=== PATIENT | female | born 1950 | race Caucasian/White ===

== ENCOUNTER 2024-10-19 16:14 | Inpatient (IN) | payer OTHER, SELFPAY ==
[2024-10-19] VITALS (21 sets, daily range): BP systolic 148–233; BP diastolic 49–145; BMI 25.0
[2024-10-19 14:50] LABS: % Basophils 0.7 % (0-2); % Eosinophils 2.3 % (0-6); % Immature Granulocytes 0.2 % (0-0.5); % Lymphocytes 16.5 % (20.5-51.1); % Neutrophils 72.3 % (42.2-75.2); Absolute Basophils 0.1 10^3/uL (0-0.2); Absolute Eosinophils 0.2 10^3/uL (0-0.7); Absolute Lymphocytes 1.6 10^3/uL (1.2-3.4); Absolute Monocytes 0.8 10^3/uL (0.1-0.6); Hematocrit 39.1 % (37.0-47.0); Hemoglobin 12.9 g/dL (12.0-16.0); Mean Corpuscular Hgb 29.1 pg (27.0-31.0); Mean Corpuscular Volume 88.3 fL (81.0-99.0); Mean Platelet Volume 11.8 fL (7.4-10.4); Nucleated Red Blood Cells % 0 %; Platelet Count 208 10^3/uL (130-400); Red Blood Cell Count 4.43 10^6/uL (4.20-5.40); Red Cell Dist. Width 13.9 % (11.5-14.5); White Blood Cell Count 9.7 10^3/uL (4.8-10.8)
--- NOTE | 2024-10-19 14:53 | ED.GENMED ---
History of Present Illness
General
Chief Complaint: Swelling
Time Seen by Provider: 10/19/24 14:20
History of Present Illness
History of Present Illness:
74-year-old female with history of hypertension and hyperlipidemia presents to the emergency department for evaluation of bilateral leg edema for 'quite some time'. She is unable to give me a specific timeframe. She states 'I would not be here if
not for my sister telling me I walked too slow'. She does report some dyspnea on exertion particularly stairs. Denies any chest pain, denies any remote cardiac symptoms prior to the onset of the symptoms. No fevers or chills. She does report
significant weight gain recently.
Past History
Past History
ED Past Medical History: None
Social History
Tobacco: Smoker
Review of Systems
Review of Systems
Allergies reviewed?: Yes
All Other Systems: ROS reviewed and negative except as documented in HPI and ROS
Phy Exam
Physical Exam
Physical Exam:
GEN: Well appearing, NAD, WDWN
Eyes: PERRLA, EOMs intact, no scleral icterus
HENT: NCAT, oral mucosa moist, no JVD
Lungs: CTAB, no wheezes, rales, rhonchi, normal chest wall excursion
Cardiac: Bradycardic, no murmur
Abdomen: S, NT, ND, NABS, no masses or hepatosplenomegaly
Neuro: AO x 3
MSK: No gross deformity or ecchymosis. 3+ edema bilateral lower extremities, no calf rigidity or tenderness
Skin: No rashes, petechiae. Normal color, no pallor or jaundice.
Psych: Calm, cooperative, proper hygiene
Scores
Heart Failure Risk
Heart Failure Risk Score: Yes
History of Stroke or TIA: No
History of intubation for respiratory distress: No
Heart rate on ED arrival >/= 110: No
SaO2 <90% on arrival on room air: No
HR >/=110 during 3min walk test (or too ill to perform test): Yes
ECG has acute ischemic changes: No
Urea >/=12mmol/L (BUN 33.6mg/dL): No
Serum CO2>/=35mmol/L: No
Troponin I or T elevated to RI Level (0.4mg/dL): Yes
NT-proBNP >/=5,000ng/L (5,000pg/ml): Yes
HF Risk Score: 5
Admission Status: VERY HIGH RISK 39.8% Consider admission to hospital
Course
Orders/Labs/Results
Orders:
Orders
10/19/24 14:18
EKG [Electrocardiogram (*1)] Urgent
Reason for Study: Bradycardia / Tachycardia
EKG- Treatment ONCE
10/19/24 14:28
Venous Doppler Lwr Ext Bilat [US Periph Venous LOWER Ext Iban] Urgent
Comment:
Reason For Exam: BLE edema
10/19/24 14:35
Complete Blood Count/With Diff Urgent
Comprehensive Metabolic Panel Urgent
Magnesium Urgent
NT-proBNP Urgent
Troponin I Urgent
10/19/24 14:51
Add On- LAB Urgent
Tests Added?: troponin, magnesium
CR Chest Portable - 1 View Urgent
Comment:
Reason For Exam: HOLT
Reason Study Needs to be Portable: Other
10/19/24 Dinner
Cholesterol Lowering
At Your Request: Full Participation
Cholesterol Lowering: Sodium, 2 Gram
10/19/24 15:31
Furosemide [Lasix] 20 mg IV ONCE ONE
10/19/24 15:35
Consult Cardiology [CARDIOLOGY CONSULT] Routine
Consulting Provider: Kojo Robin
Was physician already notified: Yes
Reason for consult: heart block
10/19/24 15:36
Activity As Directed
Activity Level: Bedrest
10/19/24 15:45
Admit/Transfer Patient As Directed
Co-Sign Provider:
Level of Care: Inpatient admission
Assign to:: IVU
Physician / Group: jammie
Diagnosis: heart block/chf
Reason for Hospitalization: heart block/chf
Expected length of stay greater than two midnights?: Yes
ELOS- Estimated Length of Stay in days: 2
I certify the patient meets the requirements for IP care: Yes
PRN Pain Medication Management As Directed
May give lesser potent ordered pain med per pt: Yes
preference::
Protocol:: Medication orders for pain may be administered in a
manner that supports deferring to patient preference
when the pt is:
- Requesting an ordered lesser potent pain medication.
Least to most potent pain medications are defined
as: acetaminophen < NSAID < tramadol < opioids
(morphine, oxycodone, hydromorphone).
- Requesting a lesser dose of the same medication IF
ORDERED.
- Requesting a less intrusive route of administration
if both routes are prescribed by the provider (PO <
IV).
10/19/24 15:50
Code Status As Directed
Resuscitation Status: Full Code
10/19/24 15:53
Furosemide [Lasix] 20 mg IV NOW STA
10/19/24 15:54
HydrALAZINE [Apresoline] 5 mg IV Q6HPRN PRN
10/19/24 17:38
Echo 2D MMode Color/Doppler Routine
Reason for Study: chf
Activity As Directed
Activity Level: As Tolerated
Intake/ Output As Directed
Frequency: q12h
Vital Signs As Directed
Frequency: Other
Additional Instructions:: Q12 or per unit guidelines if more frequent.
Weight As Directed
Frequency: Daily
Type of Scale: Standing Scale
Comment: Daily morning weight. If unable to stand, use balanced bed scale.
Weight As Directed
Frequency: Once
Type of Scale: Standing Scale
Comment: Upon Admission. If unable to stand, use balanced bed scale.
Pulse Ox/cont/shift [RESP] Routine
Quantity: 1
Special Instructions: Daily pulse oximetry at rest. If greater than 92% at rest also obtain pulse oximetry
while ambulating as tolerated.
DX Deep Vein Thrombosis Video Routine
10/19/24 20:00
Heparin 5,000 units SC Q12
10/20/24 06:00
Complete Blood Count/With Diff IN AM
Comprehensive Metabolic Panel IN AM
10/20/24 08:00
Furosemide [Lasix] 40 mg IV DAILY
Lisinopril [Zestril] 10 mg PO DAILY
Rosuvastatin Calcium [Crestor] 10 mg PO DAILY
Abnormal Lab Results
10/19/24
14:35
MPV 11.8 H fL
(7.4-10.4)
Absolute Neuts (auto) 7.0 H 10^3/uL
(1.4-6.5)
Absolute Monos (auto) 0.8 H 10^3/uL
(0.1-0.6)
Lymphocytes % 16.5 L %
(20.5-51.1)
Chloride 110 H mmol/L
(98-107)
BUN 34 H mg/dl
(7-17)
AST 90 H U/L
(14-36)
ALT 106 H U/L
(0-35)
Troponin I 0.052 H* ng/ml
10/19/24 14:35
10/19/24 14:35
Vital Signs
Initial and Last Documented VS:
Initial Vital Signs
Temp Pulse Resp BP Pulse Ox
97.2 F 41 20 217/79 96
10/19/24 13:32 10/19/24 13:32 10/19/24 13:32 10/19/24 13:32 10/19/24 13:32
Last Documented Vital Signs
Temp Pulse Resp BP Pulse Ox
97.2 F 80 22 164/132 96
10/19/24 13:32 10/19/24 17:45 10/19/24 17:15 10/19/24 17:44 10/19/24 17:15
MDM/Problems Addressed
MDM/Problems Addressed:
74-year-old female presents due to leg swelling, found to be in a complete heart block of uncertain duration. She is presenting with signs and symptoms consistent with acute congestive heart failure. Cardiology consulted, will be admitted to the
IVU under the hospitalist service for further management. Placed on cardiac pads if the need for urgent pacing arises however the patient remained quite stable in the emergency department
Comment
Comment:
EKG independently interpreted by me shows 3rd degree AV block with a ventricular rate of approximately 35
*Critical Care Note
Total Time (30-74mins, 75-104mins- exclusive of procedures): Not Applicable
ED Attending Note
-
Portions of this chart may have been created with voice recognition software.� Occasional wrong word or��sound alike� substitutions may have occurred due to the inherent limitations of voice recognition software.
Discharge Plan
Departure
Patient Disposition: Admit
Date of Disposition: 10/19/24
Time of Disposition: 15:24
Admit to: IVU
Presentation/result/management discussed w/ accepting MD/DO: Hospitalist
Discharge Problem:
Complete heart block, Congestive heart failure
Interventions
Interventions:
*Risk Screen - Suicide Last Done: 10/19/24 17:53
*General Assessment Last Done: 10/19/24 13:30
*Neglect/Abuse Screening Last Done: 10/19/24 13:30
ED- Fall Risk Assessment Last Done: 10/19/24 13:38
*ED COVID-19 Vaccine History Last Done: 10/19/24 17:53
*Nursing Disposition Last Done: 10/19/24 17:40
ED- Cardiac Assessment Last Done: 10/19/24 15:00
ED- Pulmonary Assessment Last Done: 10/19/24 15:00
ED-Skin Assessment Last Done: 10/19/24 15:00
Discharge Date and Time
Discharge Date/Time: 10/19/24 17:30
[2024-10-19 15:02] LABS: ALT (SGPT) 106 U/L (0-35); AST (SGOT) 90 U/L (14-36); Albumin 3.7 g/dl (3.5-5.0); Alkaline Phosphatase 101 U/L (38-126); Blood Urea Nitrogen 34 mg/dl (7-17); Calcium 9.1 mg/dl (8.4-10.2); Carbon Dioxide 26 mmol/L (22-30); Chloride 110 mmol/L (98-107); Glucose 97 mg/dl (70-99); Sodium 142 mmol/L (135-145); Total Bilirubin 0.9 mg/dl (0.2-1.3); Total Protein 6.3 g/dl (6.3-8.2); eGFR > 60.00
[2024-10-19 15:10] LABS: NT-proBNP 7970 pg/ml
[2024-10-19 15:16] LABS: Magnesium 2.3 mg/dl (1.6-2.3)
--- NOTE | 2024-10-19 15:38 | CON.CAR ---
Consultation
Consultation Request
Date/Time Consultation Requested: 10/19/24
Date/Time Consultation Performed: 10/19/24
Requesting Provider: Grant
Performing Provider: Lobito
Reason for Consultation: Complete heart block
Medical History
-
Chief Complaint: LE edema
History of Present Illness:
74-year-old woman past medical history of hypertension, hyperlipidemia and intellectual delay who presents for evaluation of lower extremity edema and was found to be in complete heart block for which cardiology is consulted.
Patient tells me that for what sounds like months she has been experiencing worsening lower extremity edema. Has also had episodes of lightheaded and dizziness during this time as well as presyncope. Denies elan syncope/LOC. But does tell me she
has 'flopped down' on the floor several times over this time period.
Admission ECG shows sinus rate around 75 bpm, complete heart block, junctional rhythm around 40 bpm. By my review of telemetry has had heart rate around 40 bpm throughout her time here in the emergency department.
Past Medical History
Past Medical History: HTN and Hypercholesterolemia
Past Surgical History: Bowel Resection
Social History
Tobacco: Non-Smoker
Living: With Family
Family History
Family History: Other (Mother with heart disease but patient is unable to give further details)
Allergies / Home Medications
Allergy/AdvReac Type Severity Reaction Status Date / Time
No Known Allergies Allergy Verified 10/19/24 13:30
�Medication �Instructions �Recorded �Confirmed �Type
lisinopril 10 mg tablet 10 mg PO DAILY 10/19/24 10/19/24 History
rosuvastatin 10 mg tablet (Crestor) 10 mg PO DAILY 10/19/24 10/19/24 History
Review of Systems
-
History Source: Patient
All other systems: Negative unless noted
Physical Exam
Vital Signs
Temp Pulse Resp BP Pulse Ox
97.2 F 81 22 230/66 96
10/19/24 13:32 10/19/24 14:45 10/19/24 14:45 10/19/24 14:36 10/19/24 15:00
Lab Results
10/19/24 14:35
10/19/24 14:35
Ksd-B-[id number] Pept 7970 pg/ml 10/19/24 14:35
Physical Exam
General: Comfortable
HEENT: Normocephalic
Respiratory: Clear
Cardiac: S1/S2 and Regular Rhythm (Bradycardic)
Breast: Deferred by me
GI: Soft
Musculoskeletal: Edema (2+ pitting bilateral lower extremity)
Skin: Warm and Dry
Neuro: Awake and Alert
Psych: Calm
Impression / Plan
-
Front Desk Specialist: None prior to admission, initially seen by Lobito
PCP: Kendall Kang
Assessment:
Complete heart block
Acute heart failure, unknown type
Hypertension
Hyperlipidemia
Intellectual delay
Plan:
-Presents for evaluation of progressive lower extremity edema over the course of several months and found to be in complete heart block
-ECG and telemetry showing complete heart block with junctional escape around 40 bpm
-Warm and well-perfused on exam with hypertensive blood pressure
-If she becomes symptomatic or hemodynamically unstable would start dobutamine plus or minus placing transvenous pacer
-For now recommend IVU admission and monitor on telemetry
-Bedrest
-Keep transcutaneous pacemaker pads in place
-Tentative plan for permanent pacemaker on 10/21
-Reports progressive lower extremity edema, chest x-ray suggestive of mild pulmonary edema (my interpretation), and proBNP is elevated above 7000 all in keeping with acute heart failure
-Agree with IV diuretics as ordered, plan for twice daily going forward
-Follow renal function/electrolytes
-Check echo on Monday
Discussed with nursing
Data Reviewed
-
EKG: Tracing Personally Visualized and interpreted
Radiology: Image Personally Visualized and interpreted
Ultrasound: Report Reviewed by me
Labs: Labs Reviewed by me
Old Records: Reviewed
[2024-10-19 15:52] LABS: Troponin I 0.052 ng/ml
--- NOTE | 2024-10-19 15:55 | HPS.HSE ---
Family Physician
-
Family Physician: Kendall Kang
Chief Complaint
-
syncope
History of Present Illness
74-year-old female past medical history of hypertension, hyperlipidemia presenting with increased lower extremity edema. She was brought in by her daughter for swelling. She had 2 syncopal episodes over the past 2 days. She has occasional
shortness of breath with exertion. Denies chest pain. Denies weight gain. Denies fevers or chills.
Denies headache, blurry vision, focal weakness or numbness or tingling. She has a history of high blood pressure but does not check it regularly and does not know how high her blood pressure has been.
She denies smoking or alcohol use.
No family history of heart disease.
Medical History
Past Medical History
Past Medical History: Reports Other (hypertension, hyperlipidemia)
Past Surgical History: Reports None
Social History
Tobacco: Non-smoker
Alcohol: None
Drug: None
Family History
Family History: Not pertinent
Allergies / Home Medications
Allergies reflects when Allergies were last updated in [employer].
Home Medications with original date entered in [employer]
Allergy/Medication List:
Allergies
Allergy/AdvReac Type Severity Reaction Status Date / Time
No Known Allergies Allergy Verified 10/19/24 13:30
Home Medications
lisinopril 10 mg tablet 10 mg PO DAILY 10/19/24
rosuvastatin 10 mg tablet (Crestor) 10 mg PO DAILY 10/19/24
Review of Systems
-
History Source: Patient
A 12 point ROS was completed and negative except as noted: Yes
Constitutional: Reports No Symptoms
EENT: Reports No Symptoms
Respiratory: Reports See HPI
Cardiac: Reports See HPI
Abdomen/GI: Reports No Symptoms
: Reports No Symptoms
Musculoskeletal: Reports No Symptoms
Skin: Reports No Symptoms
Neurological: Reports No Symptoms
Endocrine: Reports No Symptoms
Hematologic/Lymphatic: Reports No Symptoms
Psych: Reports No Symptoms
Physical Exam
Vital Signs
Vital Signs
Temp Pulse Resp BP Pulse Ox
97.2 F 81 22 230/66 96
10/19/24 13:32 10/19/24 14:45 10/19/24 14:45 10/19/24 14:36 10/19/24 15:00
Physical Exam
General: Well Developed, Well Nourished and No Apparent Distress
HEENT: NormoCephalic, Moist mucous membranes and Atraumatic
Respiratory: Clear
Cardiac: S1/S2, Regular Rhythm and Peripheral Edema; No Murmur or Rub
GI: Soft, Non Tender, Non Distended and Normal Bowel Sounds; No Organomegaly
Rectal: Deferred by Provider
Musculoskeletal: No Clubbing, No Cyanosis and No Edema
Skin: No Rash
Neuro: Nonfocal/grossly intact
Laboratory Results
-
10/19/24 14:35
10/19/24 14:35
Laboratory Results
Total Bilirubin 0.9 mg/dl (0.2-1.3) 10/19/24 14:35
AST 90 U/L (14-36) H 10/19/24 14:35
ALT 106 U/L (0-35) H 10/19/24 14:35
Alkaline Phosphatase 101 U/L (38-126) 10/19/24 14:35
Troponin I 0.052 ng/ml H* 10/19/24 14:35
Data Reviewed
-
Lab Data: Labs Reviewed by me
Old Records: Reviewed
Impression/Plan
-
IMPRESSION:
PLAN:
# Syncope secondary to third-degree heart block/bradycardia
-Asymptomatic currently and hemodynamically stable
-Cardiology consulted
-Likely needs pacemaker
-N.p.o. past midnight
# Hypertensive emergency
-No symptoms apart from being in heart failure
-Blood pressure of 230 systolic
-Hydralazine as needed for systolic blood pressure greater than 180
# Acute CHF exacerbation
-Cardiac BNP of 8000
-Chest x-ray pending
-Check I's and O's, daily weights
- 20 IV Lasix given, give 20 more, 40 IV daily
-Check echo
# Transaminitis secondary to CHF exacerbation
-Continue to monitor with diuresis
Essential hypertension
-Continue lisinopril
Hyperlipidemia
-Continue statin
Full code
DVT prophylaxis�heparin
Cardiac diet
[2024-10-19] MEDS: APRESOLINE 5 MG IV ×2 (16:34→20:23)
[2024-10-19] MEDS: LASIX 20 MG IV ×2 (16:36→16:37)
--- NOTE | 2024-10-19 18:17 | PTCARENOTE ---
Received pt from ER - Complete HB and BP 190 - 200/ 120. Pt was saturated in urine - purewick placed. Pt denies CP, SOB or dizziness
[2024-10-19] MEDS: HEPARIN 5000 UNITS SC (19:50)
--- NOTE | 2024-10-19 22:17 | PTCARENOTE ---
Addendum entered by Christine Brock RN 10/20/24 04:54:
Patient BP has stabilized after STAT dose of hydralazine. Most recent BP 154/61
Original Note:
Received patient at change of shift. Patient sitting in bed, A&Ox3. BP 225/60, 3rd degree HB 30-90s, 95% on room air. Informed Eliz Norman NP, of BP even after dose of hydralazine. Increased medication, STAT hydralazine given-- see MAR. Trending
BPS and trops. Pt c/o leg cramps. Heat applied, ice applied, and electrolytes drawn. Discussed plan of care for evening. Patient verbalized understanding and agrees to call care team if needing to get out of bed. Call wahl within reach.
[2024-10-19 22:20] LABS: Blood Urea Nitrogen 31 mg/dl (7-17); Calcium 8.8 mg/dl (8.4-10.2); Carbon Dioxide 27 mmol/L (22-30); Chloride 103 mmol/L (98-107); Estimated Creatinine Clearance 44 ml/min; Glucose 99 mg/dl (70-99); Sodium 135 mmol/L (135-145); eGFR > 60.00
[2024-10-19 22:26] LABS: Troponin I 0.032 ng/ml
[2024-10-20] VITALS (32 sets, daily range): BP systolic 110–254; BP diastolic 47–136; BMI 22.9
[2024-10-20] MEDS: XANAX 0.25 MG PO (02:10)
--- NOTE | 2024-10-20 04:55 | PTCARENOTE ---
Pt c/o leg cramps. Electrolytes ok. Prescribed Xanax to help relax to be able to sleep-- see MAR. Pt has been resting quietly since it was given.
[2024-10-20 05:28] LABS: % Basophils 0.7 % (0-2); % Eosinophils 2.8 % (0-6); % Immature Granulocytes 0.2 % (0-0.5); % Lymphocytes 13.2 % (20.5-51.1); % Monocytes 7.2 % (1.7-9.3); % Neutrophils 75.9 % (42.2-75.2); Absolute Basophils 0.1 10^3/uL (0-0.2); Absolute Eosinophils 0.2 10^3/uL (0-0.7); Absolute Lymphocytes 1.1 10^3/uL (1.2-3.4); Absolute Monocytes 0.6 10^3/uL (0.1-0.6); Absolute Neutrophils 6.3 10^3/uL (1.4-6.5); Hematocrit 34.5 % (37.0-47.0); Hemoglobin 11.5 g/dL (12.0-16.0); Mean Corp Hgb Conc. 33.3 g/dL (33.0-37.0); Mean Corpuscular Volume 87.1 fL (81.0-99.0); Mean Platelet Volume 11.6 fL (7.4-10.4); Nucleated Red Blood Cells % 0 %; Platelet Count 195 10^3/uL (130-400); Red Blood Cell Count 3.96 10^6/uL (4.20-5.40); Red Cell Dist. Width 13.9 % (11.5-14.5); White Blood Cell Count 8.3 10^3/uL (4.8-10.8)
[2024-10-20 05:39] LABS: ALT (SGPT) 92 U/L (0-35); AST (SGOT) 74 U/L (14-36); Albumin 2.8 g/dl (3.5-5.0); Alkaline Phosphatase 98 U/L (38-126); Blood Urea Nitrogen 30 mg/dl (7-17); Calcium 8.3 mg/dl (8.4-10.2); Carbon Dioxide 25 mmol/L (22-30); Chloride 106 mmol/L (98-107); Estimated Creatinine Clearance 44 ml/min; Glucose 92 mg/dl (70-99); Sodium 136 mmol/L (135-145); Total Bilirubin 0.7 mg/dl (0.2-1.3); Total Protein 5.1 g/dl (6.3-8.2); eGFR > 60.00
[2024-10-20] MEDS: HEPARIN 5000 UNITS SC ×2 (08:44→20:12)
[2024-10-20] MEDS: LASIX 40 MG IV ×2 (08:44→17:05)
[2024-10-20] MEDS: CRESTOR 10 MG PO (08:45)
[2024-10-20] MEDS: ZESTRIL 10 MG PO (08:45)
[2024-10-20] MEDS: APRESOLINE 10 MG IV ×2 (09:16→20:12)
--- NOTE | 2024-10-20 11:58 | W.PN.HOSP.TC ---
Today's Communication/Plan
-
see PN
Assessment / Plan
Assessment / Plan
74yo F with PMHX of HTN, HLD came with progresisve b/l LE swelling for few weeks, found complete canales block. Had few episodes of pre-syncope at home. Planned for PPM, meanwhile- diuresis for CHF
A/P:
#Acute CHF unspecified
#COmplete AVB
transutaneous pace maker and Atropin PRN
telemetry
Cardiology for PPM on 10/21/24
Lasix, daily weight, follow Cr and electrolytes
Echo
#HTN emergency on admisison
up-titrate antihypertensives
#Chronic transaminitis
US RUQ - unremarkable
check hepatitis panel
DVT ppx hep
FUll code
I have spent at least 36min reviewing chart, test results, communication with cosnultants and direct patient care
Anticipated Discharge: > 48 hours
Subjective/Interval History
-
Date of Service: October 20, 2024
Objective Data
-
Labs:
Laboratory Results
10/20/24
05:06
WBC 8.3
Hgb 11.5 L
Hct 34.5 L
Plt Count 195
Sodium 136
Potassium 4.0
Chloride 106
Carbon Dioxide 25
BUN 30 H
Creatinine 0.8
Glucose 92
Calcium 8.3 L
Total Bilirubin 0.7
AST 74 H
ALT 92 H
Alkaline Phosphatase 98
Vital Signs:
Vital Signs
Temp Pulse Resp BP Pulse Ox
97.7 F 80 18 163/74 97
10/20/24 08:58 10/20/24 11:32 10/20/24 08:58 10/20/24 11:32 10/20/24 08:58
I&O
10/19/24 10/20/24 10/21/24
06:59 06:59 06:59
Output Total 1750 / 1750 650 / 650
Balance -1750 / -1750 -650 / -650
Review of Systems
-
History Source: Patient
All other systems: Reviewed and negative
Physical Exam
-
General: No Apparent Distress
HEENT: Normocephalic
Respiratory: Clear to Auscultation
Cardiac: Irregular Rhythm
GI: Soft, Nontender and Nondistended
Musculoskeletal: No Clubbing, No Cyanosis, Edema, Right Lower Extrem and Edema, Left Lower Extrem
Skin: Warm
Neuro: Awake, Alert, Oriented and AO x 3
Psych: Calm
--- NOTE | 2024-10-20 14:18 | W.PN.CARDCBS ---
Today's Communication / Plan
-
N.p.o. at midnight for permanent pacemaker tomorrow
Continue Lasix
Check echo
Impression / Plan
-
Adult Probation Officer: None prior to admission, initially seen by Lobito
PCP: Kendall Kang
Assessment:
Complete heart block
Acute heart failure, unknown type
Hypertension
Hyperlipidemia
Intellectual delay
Plan:
-Presents for evaluation of progressive lower extremity edema over the course of several months and found to be in complete heart block
-ECG and telemetry showing complete heart block with junctional escape around 40 bpm
-Warm and well-perfused on exam with hypertensive blood pressure
-If she becomes symptomatic or hemodynamically unstable would start dobutamine +/- placing transvenous pacer
-For now monitor on telemetry in IVU
-Bedrest
-Keep transcutaneous pacemaker pads in place
-Tentative plan for permanent pacemaker on 10/21
-Reports progressive lower extremity edema, chest x-ray suggestive of mild pulmonary edema (my interpretation), and proBNP is elevated above 7000 all in keeping with acute heart failure
-IV diuretics twice daily
-Follow renal function/electrolytes
-Check echo on Monday
Discussed with nursing
Progress Note - Adult Probation Officer
Subjective
Date of Service: October 20, 2024
No acute overnight events. Patient remains in heart block on review of telemetry. She is not reporting any lightheadedness or syncope to me. No cardiac complaints.
Objective
Labs:
10/20/24 05:06
10/20/24 05:06
Labs
Hgb 11.5 g/dL (12.0-16.0) L 10/20/24 05:06
Hct 34.5 % (37.0-47.0) L 10/20/24 05:06
Plt Count 195 10^3/uL (130-400) 10/20/24 05:06
Sodium 136 mmol/L (135-145) 10/20/24 05:06
Potassium 4.0 mmol/L (3.5-5.1) 10/20/24 05:06
BUN 30 mg/dl (7-17) H 10/20/24 05:06
Creatinine 0.8 mg/dL (0.6-1.0) 10/20/24 05:06
Glucose 92 mg/dl (70-99) 10/20/24 05:06
Troponins
10/19/24 10/19/24 10/20/24
14:35 21:48 05:45
Troponin I 0.052 H* 0.032 D Cancelled
10/20/24
13:45
Troponin I Cancelled
Vital Signs and I&O:
Vital Signs
Temp Pulse Resp BP Pulse Ox
97.5 F 77 18 155/50 96
10/20/24 12:00 10/20/24 12:58 10/20/24 12:00 10/20/24 12:58 10/20/24 12:00
Vital Signs
Temp Pulse Resp BP Pulse Ox
97.5 F 77 18 155/50 96
10/20/24 12:00 10/20/24 12:58 10/20/24 12:00 10/20/24 12:58 10/20/24 12:00
Intake & Output
10/18/24 10/19/24 10/20/24 10/21/24
06:59 06:59 06:59 06:59
Intake Total 480 / 480
Output Total 1750 / 1750 900 / 900
Balance -1750 / -1750 -420 / -420
Physical Exam
Physical Exam
Gen: NAD, AA
HEENT: NC/AT, sclera anicteric
Neck: No JVD
CV: Regular, bradycardia
Lungs: CTAB on room air
Abd: S/ND
Ext: 1+ LE edema bilaterally
Skin: Warm, dry
Neuro: Non-focal
[2024-10-20] MEDS: TYLENOL 650 MG PO (14:29)
--- NOTE | 2024-10-20 22:05 | PTCARENOTE ---
Addendum entered by Christine Brock RN 10/20/24 22:05:
Pt's BP currently 125/69. Will continue to monitor.
Original Note:
BP 197/68 @ change of shift. Hydralazine given per order-- see MAR
[2024-10-21] VITALS (22 sets, daily range): BP systolic 121–200; BP diastolic 46–98; BMI 22.0
[2024-10-21 05:26] LABS: % Basophils 0.6 % (0-2); % Eosinophils 1.7 % (0-6); % Immature Granulocytes 0.3 % (0-0.5); % Lymphocytes 14.2 % (20.5-51.1); % Monocytes 7.9 % (1.7-9.3); % Neutrophils 75.3 % (42.2-75.2); Absolute Basophils 0.1 10^3/uL (0-0.2); Absolute Eosinophils 0.2 10^3/uL (0-0.7); Absolute Lymphocytes 1.4 10^3/uL (1.2-3.4); Absolute Monocytes 0.8 10^3/uL (0.1-0.6); Absolute Neutrophils 7.3 10^3/uL (1.4-6.5); Hematocrit 37.8 % (37.0-47.0); Hemoglobin 12.4 g/dL (12.0-16.0); Mean Corp Hgb Conc. 32.8 g/dL (33.0-37.0); Mean Corpuscular Hgb 28.6 pg (27.0-31.0); Mean Corpuscular Volume 87.1 fL (81.0-99.0); Mean Platelet Volume 11.8 fL (7.4-10.4); Nucleated Red Blood Cells % 0 %; Platelet Count 218 10^3/uL (130-400); Red Blood Cell Count 4.34 10^6/uL (4.20-5.40); Red Cell Dist. Width 13.8 % (11.5-14.5); White Blood Cell Count 9.7 10^3/uL (4.8-10.8)
[2024-10-21 05:34] LABS: INR 1.02; PT 13.7 Sec (11.4-14.6)
[2024-10-21 05:35] LABS: APTT 33.1 Sec (23.4-35.0)
[2024-10-21 06:09] LABS: ALT (SGPT) 75 U/L (0-35); AST (SGOT) 46 U/L (14-36); Albumin 3.3 g/dl (3.5-5.0); Alkaline Phosphatase 92 U/L (38-126); Blood Urea Nitrogen 29 mg/dl (7-17); Calcium 8.5 mg/dl (8.4-10.2); Carbon Dioxide 27 mmol/L (22-30); Chloride 99 mmol/L (98-107); Estimated Creatinine Clearance 34 ml/min; Glucose 101 mg/dl (70-99); Potassium 3.7 mmol/L (3.5-5.1); Sodium 135 mmol/L (135-145); Total Bilirubin 1.2 mg/dl (0.2-1.3); Total Protein 5.5 g/dl (6.3-8.2); eGFR > 60.00
[2024-10-21 06:20] LABS: TSH Reflex To Free T4 6.76 uIU/ml (0.47-4.68)
[2024-10-21 06:50] LABS: Free T4 1.83 ng/dl (0.78-2.19)
[2024-10-21] MEDS: ZESTRIL 10 MG PO (09:04)
[2024-10-21] MEDS: APRESOLINE 10 MG IV ×2 (09:09→20:45)
[2024-10-21] MEDS: LASIX 40 MG IV ×2 (09:13→17:39)
[2024-10-21] MEDS: HEPARIN 5000 UNITS SC ×2 (09:13→20:48)
[2024-10-21] MEDS: CRESTOR 10 MG PO (09:17)
--- NOTE | 2024-10-21 11:45 | CM ---
Reviewed chart. Met with Miss Mallory to review discharge plans. She states prior to admission she resides with her [id number]-[id number]-ayn in a one story home with one step to enter. She states prior to admission she ambulates with a single point cane. She
states she has a single point cane and walker at home. She states she has not had VNA Services but she thinks she was in SNF/Rehab. in the past. She states she has a prescription plan and uses [facility]. Will need to see her current
functional level to see if he will have any skilled care needs. If she needs SNF/Rehab. she will need a SNF auth. Angel work-up in progress. The discharge plan is to return home with her [id number] and VNA verses SNF/Rehab. if indicated.
--- NOTE | 2024-10-21 15:18 | W.PN.HOSP.TC ---
Today's Communication/Plan
-
Assessment / Plan
Assessment / Plan
NAD sitting in bedside chair
Scleral Anicteric
MMM
No JVD
CTABL
Regular though bradycardic, S1/S2
Soft, NT, ND, BS+
Warm, Dry
AAOx3
Calm
#Acute CHF unspecified
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
transutaneous pace maker and Atropine PRN
validation engineer
Cardiology for PPM on 10/21/24
IV Lasix twice daily, daily weight, follow Cr and electrolytes
Echo pending
#HTN emergency on admisison
up-titrate antihypertensives
#Chronic transaminitis
US RUQ - unremarkable
check hepatitis panel
DVT ppx hep
FUll code
Anticipated Discharge: 24 - 48 hours
Subjective/Interval History
-
Date of Service: October 21, 2024
Seen and examined. No new complaints. No acute overnight events.
Sitting in bedside chair. No complaints of dizziness. However heart rate in the mid 30s
Objective Data
-
Labs:
Laboratory Results
10/21/24
05:00
WBC 9.7
Hgb 12.4
Hct 37.8
Plt Count 218
PT 13.7
INR 1.02
APTT 33.1
Sodium 135
Potassium 3.7
Chloride 99
Carbon Dioxide 27
BUN 29 H
Creatinine 0.9
Glucose 101 H
Calcium 8.5
Total Bilirubin 1.2
AST 46 H
ALT 75 H
Alkaline Phosphatase 92
Vital Signs:
Vital Signs
Temp Pulse Resp BP Pulse Ox
98.2 F 69 16 161/56 99
10/21/24 11:30 10/21/24 14:00 10/21/24 11:30 10/21/24 11:29 10/21/24 11:30
I&O
10/20/24 10/21/24 10/22/24
06:59 06:59 06:59
Intake Total 480 / 480 50 / 50
Output Total 1750 / 1750 1400 / 1400 950 / 950
Balance -1750 / -1750 -920 / -920 -900 / -900
--- NOTE | 2024-10-21 15:38 | ITS.CL.PACE ---
[employer] Generator [employer] - Pacemaker Implant
Pacemaker Implant
Procedure Report:
PACEMAKER IMPLANT REPORT
Case Loader Operator: None prior to admission, initially seen by Lobito
PCP: Kendall Kang
Date of Procedure: 10/21/24
Procedure:
Implantation of dual-chamber permanent pacemaker utilizing the left bundle branch for conduction system pacing
Indication/Diagnosis:
Non-reversible symptomatic bradycardia due to third degree atrioventricular block
HISTORY:
Patient presented to the emergency department with progressive lower extremity edema as well as shortness of breath over the course of several months and was found to be in complete heart block with a junctional escape at 40 bpm, no reversible cause
is found. She is referred now for implantation of permanent pacemaker for symptomatic complete heart block.
After informed consent was obtained, 'time out' was called and confirmed, the patient was prepped and draped in a sterile fashion. Lidocaine with epi was used for local anesthesia. Central venous access was obtained via subclavian venipuncture. An
incision was made along the left chest and a pre-pectoral pocket was formed. Using a Seldinger technique and peel-away sheaths, the pacing leads were placed under fluoroscopic guidance.
Fluoroscopy was used to determine likely anatomic site for left bundle branch pacing. The Medtronic C315 sheath was used to deliver the Medtronic 3830 Selectsecure pacing lead with the helix exposed just exposed from the sheath tip during continuous
monitoring when pacemapping the septum during gentle clockwise rotation to obtain a paced QRS morphology of a W pattern in lead V1. Once the suspected optimal site was identified, lead deployment was performed with several rapid rotations as paced
QRS morphology was intermittently monitored until a paced QRS complex in lead V1 demonstrated development of an R wave (Qr).
Unipolar pacing impedance dropped by approximately 100 Ohms suggesting it had reached the left ventricular subendocardial.
Stable VEgm injury current is present throughout final lead position including at end of case, suggesting there was no perforation through the septum into the LV cavity.
Unipolar pacing impedance is 1000 Ohms
Unipolar pacing threshold is stable at 1 V @ 0.4 ms.
Right atrial lead was placed at the RAA.
Once testing (see below) showed adequate and stable function, the leads were secured using the suture sleeves. The pocket was liberally irrigated with antibiotic solution. The leads were connected to the generator header and the leads and
generator were placed within the pocket. Fluoroscopy confirmed stable lead position. The pocket was closed in the typical fashion.
Fluoroscopy was used to guide lead placement.
IMPLANTS:
Medtronic [id number], SN: [id number], Left Pectoral
RA: Medtronic 5076-45, SN: [id number], RAA
Left Bundle: Medtronic 3830 , SN:[id number], Interventricular septum at LBB
DEVICE TESTING:
Sensing: RA 2.1 mV, RV 8 mV (bipolar)
Capture: RA 1 V@ 0.4ms, RV 0.5 V@ 0.4ms (bipolar)
Ohms: RA 620, RV 980 (bipolar)
FINAL PROGRAMMING
Caleb Pacing: DDD 60-130 ppm
COMPLICATIONS:
None
CONCLUSIONS:
Successful implant of dual chamber permanent pacemaker utilizing Left Bundle Branch conduction system capture for ventricular resynchronization pacing.
RECOMMENDATIONS:
Note, echocardiogram is pending. Findings will help determine medical therapy (HF with preserved or reduced EF)
She is hypertensive and now has pacing support, will add beta-quoc therapy while maintaining lisinopril, at least for now.
Coreg 6.125 mg twice daily
Post-op care (tele, CXR, IV abx)
In-Office wound check in 5-7 days
Copy to:
Dr. Kendall Kang
Dr Kojo Robin
--- NOTE | 2024-10-21 19:44 | PTCARENOTE ---
Received pt post PPM. VSS. Pt lethargic yet arousable to name. EKG and CXR obtained. Left ACW site w/ pressure dressing and arm immobilizer intact. Will monitor.
[2024-10-21] MEDS: COREG PO (20:38)
[2024-10-21] MEDS: ANCEF 5 IV (22:17)
--- NOTE | 2024-10-21 23:48 | PTCARENOTE ---
Patient received at change of shift resting in the bed. Denies pain. Vpaced on the monitor. PPM site with aquacell and pressure dressing C/D/I. Radial pulses palpable. Left arm immobilizer in place. Patient refusing PO medications tonight but did
allow IV medications and SQ heparin to be given, stated she 'didn't feel like it' when asked why she did not want PO medications. Call wahl within reach. Bed in lowest position, wheels locked. Care ongoing.
[2024-10-22] VITALS (11 sets, daily range): BP systolic 106–149; BP diastolic 60–122; PULSE 73; BMI 21.4
[2024-10-22 04:08] LABS: Hematocrit 37.8 % (37.0-47.0); Hemoglobin 12.3 g/dL (12.0-16.0); Mean Corp Hgb Conc. 32.5 g/dL (33.0-37.0); Mean Corpuscular Hgb 28.7 pg (27.0-31.0); Mean Corpuscular Volume 88.1 fL (81.0-99.0); Mean Platelet Volume 10.9 fL (7.4-10.4); Platelet Count 206 10^3/uL (130-400); Red Blood Cell Count 4.29 10^6/uL (4.20-5.40); Red Cell Dist. Width 14.2 % (11.5-14.5)
[2024-10-22 04:31] LABS: Blood Urea Nitrogen 28 mg/dl (7-17); Calcium 8.5 mg/dl (8.4-10.2); Carbon Dioxide 28 mmol/L (22-30); Chloride 99 mmol/L (98-107); Estimated Creatinine Clearance 34 ml/min; Glucose 118 mg/dl (70-99); Magnesium 2.2 mg/dl (1.6-2.3); Potassium 3.6 mmol/L (3.5-5.1); Sodium 138 mmol/L (135-145); eGFR > 60.00
[2024-10-22] MEDS: ANCEF 5 IV (05:19)
--- NOTE | 2024-10-22 08:19 | W.PN.CARDCBS ---
Addendum entered and electronically signed by Papito Jackson MD 10/22/24 09:31:
Patient seen, interviewed and examined by me.
She tells me she feels well, no chest pain shortness of breath palpitations or dizziness.
Well-appearing, no acute distress
Regular rate and rhythm with normal S1 and S2, no S3 no S4. There is a grade 1/6 apical holosystolic murmur and no rubs. PMI is normally placed.
Lungs are clear to auscultation bilaterally without wheezes rales or rhonchi.
Abdomen soft nontender nondistended with normoactive bowel sounds
Extremities show trace pretibial edema bilaterally no clubbing or cyanosis.
Neurologic exam is grossly nonfocal.
Review of telemetry shows atrial sensed ventricular paced rhythm.
Review of chest x-ray from yesterday shows the expected finding of newly placed dual-chamber permanent pacemaker and no pneumothorax. There is no vascular congestion to suggest pulmonary edema.
Weight is down significantly, at least 7 pounds and fluid balance remains negative with IV Lasix.
With zoroastrianism of AV synchrony heart failure should continue to improve.
Coreg 6.25 mg twice daily started October 21, 2024, continue
Increase lisinopril to 20 mg daily starting October 22, 2024 which should also help with her hypertension
Likely change to oral Lasix in the next 24 hours
Check cost of Farxiga
Await echocardiogram
If there is significant LV systolic dysfunction, would attempt to maximize guideline directed medical therapy and reassess echocardiogram in 3 months
If LVEF is less than 30% and remains less than 30% after 3 months of guideline directed medical therapy, there can be consideration for upgrade to ICD for sudden cardiac risk reduction
I reviewed yesterday's pacemaker implantation procedure and results with her in detail. We discussed wound care and arm motion restrictions as well. All of her questions have been answered.
Original Note:
Today's Communication / Plan
-
Echo pending for today
Cont Lasix 40 mg IV BID
Check cost of Farxiga
Check CVE
54 min face to face and coordination of care
Impression / Plan
-
Penology Teacher: None prior to admission, initially seen by Lobito
PCP: Kendall Kang
Impression:
Admitted with complete heart block 10/19/24
s/p Medtronic DC PPM 10/21/24
Acute HF unknown EF
Hypertension
Hyperlipidemia
Chronically elevated LFTs
Developmental delay
Atherosclerotic disease of abdominal aorta without evidence of AAA by u/s 10/20/24
Echo 10/22/24: Report pending
Plan:
-ECG from 10/22/24 reviewed ba tai and patient is A sensed and V paced.
-Patient with complete heart block on admission and had Medtronic DC PPM placed 10/21/24
-Left ACW pressure dressing removed by me 10/22/24 to reveal intact Aquacel without drainage or tenderness. LUE immobilizer in place and limb restrictions reviewed with patient. PT eval pending for 10/22/24 to check on mobility
-Weight is down at least 7 lbs with Lasix 40 mg IV BID diuresis. Patient was not taking Lasix prior to admission.
-Echo pending for 10/22/24. No previous echo available for review/comparison
-Outpatient dose of lisinopril 10 mg daily has been continued
-New to Coreg 6.25 mg BID starting 10/21/24 PM
-Check cost of Farxiga 10 mg daily
-LFTs elevated as far back as 2021. Abdominal u/s showed normal liver appearance
-There is evidence of atherosclerotic disease of abdominal aorta without evidence of AAA by u/s 10/20/24. Check CVE. Outpatient dose of Crestor 10 mg daily has been continued.
HPI: 74-year-old woman past medical history of hypertension, hyperlipidemia and intellectual delay who presents for evaluation of lower extremity edema and was found to be in complete heart block for which cardiology is consulted. Patient tells me
that for what sounds like months she has been experiencing worsening lower extremity edema. Has also had episodes of lightheaded and dizziness during this time as well as presyncope. Denies elan syncope/LOC. But does tell me she has 'flopped
down' on the floor several times over this time period. Admission ECG shows sinus rate around 75 bpm, complete heart block, junctional rhythm around 40 bpm. By my review of telemetry has had heart rate around 40 bpm throughout her time here in the
emergency department.
Progress Note - Penology Teacher
Subjective
Date of Service: October 22, 2024
Denies pain, says that she understands limb restrictions
Objective
Labs:
10/22/24 03:32
10/22/24 03:32
Labs
Hgb 12.3 g/dL (12.0-16.0) 10/22/24 03:32
Hct 37.8 % (37.0-47.0) 10/22/24 03:32
Plt Count 206 10^3/uL (130-400) 10/22/24 03:32
PT 13.7 Sec (11.4-14.6) 10/21/24 05:00
INR 1.02 10/21/24 05:00
APTT 33.1 Sec (23.4-35.0) 10/21/24 05:00
Sodium 138 mmol/L (135-145) 10/22/24 03:32
Potassium 3.6 mmol/L (3.5-5.1) 10/22/24 03:32
BUN 28 mg/dl (7-17) H 10/22/24 03:32
Creatinine 0.9 mg/dL (0.6-1.0) 10/22/24 03:32
Glucose 118 mg/dl (70-99) H 10/22/24 03:32
Troponins
10/19/24 10/19/24 10/20/24
14:35 21:48 05:45
Troponin I 0.052 H* 0.032 D Cancelled
10/20/24
13:45
Troponin I Cancelled
Vital Signs and I&O:
Vital Signs
Temp Pulse Resp BP Pulse Ox
98.4 F 82 16 142/84 94
10/22/24 07:57 10/22/24 07:57 10/22/24 07:57 10/22/24 03:23 10/22/24 07:57
Vital Signs
Temp Pulse Resp BP Pulse Ox
98.4 F 82 16 142/84 94
10/22/24 07:57 10/22/24 07:57 10/22/24 07:57 10/22/24 03:23 10/22/24 07:57
Intake & Output
10/20/24 10/21/24 10/22/24 10/23/24
06:59 06:59 06:59 06:59
Intake Total 480 / 480 50 / 50
Output Total 1750 / 1750 1400 / 1400 1750 / 1750
Balance -1750 / -1750 -920 / -920 -1700 / -1700
Physical Exam
Physical Exam
GEN: NAD. AAO to person, place and situation
HEENT: EOMI
LUNGS: RA. No audible wheeze
CV: A sensed and v paced on tele.
ABD: ND
EXT: No edema B/L
NEURO: Gross non-focal
SKIN: No rash
[2024-10-22] MEDS: LASIX 40 MG IV ×2 (08:50→15:49)
[2024-10-22] MEDS: HEPARIN 5000 UNITS SC ×2 (08:52→19:38)
[2024-10-22] MEDS: FLUSH (NSS) 1 FLUSH IV ×2 (08:52→15:50)
[2024-10-22] MEDS: ZESTRIL 10 MG PO (08:53)
[2024-10-22] MEDS: COREG 6.25 MG PO ×2 (08:53→19:36)
[2024-10-22] MEDS: CRESTOR 10 MG PO (08:54)
[2024-10-22] MEDS: KCL 20 MEQ PO ×2 (09:00→21:19)
[2024-10-22] MEDS: TYLENOL 650 MG PO ×2 (09:01→21:31)
[2024-10-22] MEDS: FARXIGA 10 MG PO (09:01)
[2024-10-22 10:21] LABS: Total Cholesterol 109 mg/dl (50-199); Triglyceride 86 mg/dl (10-149); Very Low Density Lipoprotein 17 mg/dl (0-30)
--- NOTE | 2024-10-22 11:07 | PTCARENOTE ---
received patient this am in bed, able to ambulated, hunched over with walker to BR. monitor shows V paced. LCW Acuseal, pressure dsg. and immobilizer intact. purewick removed from patient, encouraged patient to use call wahl and then ambulate to BR
with assist, pt. verbalizes understanding.
--- NOTE | 2024-10-22 13:09 | CM ---
Reviewed chart. Asked to check co-pay for Farxiga 10 mg po daily. Telephone call to [facility] to check on her co-pay. She does not have a co-pay. Updated P.A. regarding co-pay. awaiting physical therapy evaluation to see if she will have
any skilled care needs. Met with Miss. Mallory to review co-pay information. Prior to admission she resides with her [id number] in a one story home with one step to enter. Prior to admission she ambulates with a single point cane. She has a
single point cane and walker at home. She has a prescription plan and uses [facility]. Medical work-up in progress. The discharge plan is to return home with her [id number] when medically stable.
--- NOTE | 2024-10-22 14:10 | W.PN.HOSP.TC ---
Today's Communication/Plan
-
Assessment / Plan
Assessment / Plan
NAD sitting in bedside chair
Scleral Anicteric
MMM
No JVD
CTABL
Regular though bradycardic, S1/S2
Soft, NT, ND, BS+
Warm, Dry
AAOx3
Calm
#Acute CHF unspecified
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
PPM placed on 10/21/24
IV Lasix twice daily, daily weight, follow Cr and electrolytes
Echo pending
#HTN emergency on admisison
up-titrate antihypertensives
#Chronic transaminitis
US RUQ - unremarkable
check hepatitis panel
DVT ppx hep
FUll code
Anticipated Discharge: 24 - 48 hours
Subjective/Interval History
-
Date of Service: October 22, 2024
Seen and examined. No new complaints. No acute overnight events.
Asking if she is going home today
S/p PPM placement yesterday. Tolerated procedure well.
Still requiring IV diuretics. Pending 2D echocardiogram
Objective Data
-
Labs:
Laboratory Results
10/22/24
03:32
WBC 11.0 H
Hgb 12.3
Hct 37.8
Plt Count 206
Sodium 138
Potassium 3.6
Chloride 99
Carbon Dioxide 28
BUN 28 H
Creatinine 0.9
Glucose 118 H
Calcium 8.5
Vital Signs:
Vital Signs
Temp Pulse Resp BP Pulse Ox
97.8 F 65 20 149/73 98
10/22/24 11:47 10/22/24 10:00 10/22/24 11:47 10/22/24 08:53 10/22/24 11:47
I&O
10/21/24 10/22/24 10/23/24
06:59 06:59 06:59
Intake Total 480 / 480 50 / 50
Output Total 1400 / 1400 1750 / 1750
Balance -920 / -920 -1700 / -1700
[2024-10-22 15:32] LABS: HDL Cholesterol 46 mg/dl; LDL Cholesterol, Calculated 46 mg/dl
--- NOTE | 2024-10-22 15:51 | PTCARENOTE ---
echo completed at bedside.
[2024-10-22 20:00] LABS: Hepatitis B Surface Antigen Negative (Negative)
[2024-10-22 20:17] LABS: Hepatitis B Core Ab, Total Negative (Negative); Hepatitis B Surface Antibody Negative; Hepatitis C Antibody Negative (Negative)
[2024-10-23] VITALS (12 sets, daily range): BP systolic 118–157; BP diastolic 60–119; PULSE 60; BMI 19.2
--- NOTE | 2024-10-23 01:41 | PTCARENOTE ---
Received patient at change of shift. Patient sitting in bed, awake and oriented x3. Left chest site clean, dry, and intact with Aquacel dressing. Soft to the touch, no swelling or ecchymosis. BP 106/93, V-paced 70s, 96% on room air. Discussed plan
of care for the evening. Patient verbalized understanding the need to call RN for ambulation. Call wahl within reach.
[2024-10-23 03:30] LABS: Hemoglobin 11.6 g/dL (12.0-16.0); Mean Corp Hgb Conc. 32.2 g/dL (33.0-37.0); Mean Corpuscular Hgb 28.5 pg (27.0-31.0); Mean Corpuscular Volume 88.5 fL (81.0-99.0); Mean Platelet Volume 11.5 fL (7.4-10.4); Platelet Count 174 10^3/uL (130-400); Red Blood Cell Count 4.07 10^6/uL (4.20-5.40); Red Cell Dist. Width 14.2 % (11.5-14.5); White Blood Cell Count 10.7 10^3/uL (4.8-10.8)
[2024-10-23 03:53] LABS: Blood Urea Nitrogen 40 mg/dl (7-17); Carbon Dioxide 29 mmol/L (22-30); Chloride 98 mmol/L (98-107); Estimated Creatinine Clearance 23 ml/min; Glucose 98 mg/dl (70-99); Potassium 4.6 mmol/L (3.5-5.1); Sodium 134 mmol/L (135-145); eGFR 43.42
[2024-10-23] MEDS: HEPARIN 5000 UNITS SC ×2 (08:53→19:36)
[2024-10-23] MEDS: FARXIGA 10 MG PO (08:53)
[2024-10-23] MEDS: COREG 6.25 MG PO ×2 (08:53→19:35)
[2024-10-23] MEDS: CRESTOR 10 MG PO (08:53)
[2024-10-23] MEDS: ZESTRIL 20 MG PO (08:54)
[2024-10-23] MEDS: LASIX IV (09:02)
--- NOTE | 2024-10-23 09:04 | W.PN.CARDCBS ---
Addendum entered and electronically signed by Papito Jackson MD 10/23/24 12:58:
Patient seen, interviewed and examined by me.
Well-appearing, no acute distress
Regular rate and rhythm with normal S1 and S2, no S3 no S4. There is a grade 1/6 apical holosystolic murmur and no rubs. PMI is normally placed.
Lungs are clear to auscultation bilaterally without wheezes rales or rhonchi.
Abdomen soft nontender nondistended with normoactive bowel sounds
Extremities show trace pretibial edema bilaterally no clubbing or cyanosis.
Neurologic exam is grossly nonfocal.
Doing well after her pacemaker implantation October 21, 2024
Echocardiogram 10/22/24 finds EF 75%, mild basal septal hypertrophy with septum measuring up to 1.2 cm, cavity obliteration noted on some views, basal inferior wall appears akinetic, trace MR
Her presentation with heart failure is heart failure with preserved ejection fraction exacerbated by complete heart block. Complete heart block has resolved since implantation of dual-chamber permanent pacemaker October 21, 2024. Laboratory
studies suggest she is likely over diuresed given her TAMICA.
Would stop Lasix
I expect she would not need Lasix as an outpatient
I spoke to her [id number]-[id number] this morning via telephone call to give her an update and answered all of her questions.
From a cardiology standpoint no objection to discharge at any time as long as she has follow-up regarding her TAMICA which is likely to improve with holding/stopping diuretic therapy.
Original Note:
Today's Communication / Plan
-
Lasix on hold due to TAMICA
Weight is down 13 lbs if weights are accurate
Lisinopril increased to 20 mg daily due to HTN
Impression / Plan
-
Television Schedule Coordinator: None prior to admission, initially seen by Lobito
PCP: Kendall Kang
Impression:
Admitted with complete heart block 10/19/24
s/p Medtronic DC PPM 10/21/24
Acute HF unknown EF
Hypertension
Hyperlipidemia
Chronically elevated LFTs
Developmental delay
Atherosclerotic disease of abdominal aorta without evidence of AAA by u/s 10/20/24
TAMICA
Echo 10/22/24: EF 75%, mild basal septal hypertrophy with septum measuring up to 1.2 cm, cavity obliteration noted on some views, basal inferior wall appears akinetic, trace MR
Plan:
-Standing scale weight on 10/21/24 was 101 lbs and standing scale weight on 10/23/24 was 88 lbs. Cre up to 1.3 on 10/23/24. Lasix 40 mg IV BID placed on hold 10/23/24. Patient was not taking a diuretic prior to admission.
-EF 75% by echo 10/22/24 and no significant valve disease. LV hyperdynamic on echo and holding diuretic as noted
-Do not expect that patient will need diuretic upon d/c
-Patient with complete heart block on admission and had Medtronic DC PPM placed 10/21/24
-Outpatient dose of lisinopril increased to 20 mg daily 10/23/24
-New to Coreg 6.25 mg BID starting 10/21/24 PM
-New to Farxiga 10 mg daily and she has a $0 co-pay. Appreciate help of CM on checking cost.
-LFTs elevated as far back as 2021. Abdominal u/s showed normal liver appearance
-There is evidence of atherosclerotic disease of abdominal aorta without evidence of AAA by u/s 10/20/24. Check CVE. Outpatient dose of Crestor 10 mg daily has been continued.
-PT suggesting rehab stay prior to returning home to live with her sister in law.
HPI: 74-year-old woman past medical history of hypertension, hyperlipidemia and intellectual delay who presents for evaluation of lower extremity edema and was found to be in complete heart block for which cardiology is consulted. Patient tells me
that for what sounds like months she has been experiencing worsening lower extremity edema. Has also had episodes of lightheaded and dizziness during this time as well as presyncope. Denies elan syncope/LOC. But does tell me she has 'flopped
down' on the floor several times over this time period. Admission ECG shows sinus rate around 75 bpm, complete heart block, junctional rhythm around 40 bpm. By my review of telemetry has had heart rate around 40 bpm throughout her time here in the
emergency department.
Progress Note - Television Schedule Coordinator
Subjective
Date of Service: October 23, 2024
Feeling fine, not lightheaded or dizzy
Objective
Labs:
10/23/24 02:33
10/23/24 02:33
Labs
Hgb 11.6 g/dL (12.0-16.0) L 10/23/24 02:
Hct 36.0 % (37.0-47.0) L 10/23/24 02:33
Plt Count 174 10^3/uL (130-400) 10/23/24 02:33
PT 13.7 Sec (11.4-14.6) 10/21/24 05:00
INR 1.02 10/21/24 05:00
APTT 33.1 Sec (23.4-35.0) 10/21/24 05:00
Sodium 134 mmol/L (135-145) L 10/23/24 02:33
Potassium 4.6 mmol/L (3.5-5.1) D 10/23/24 02:33
BUN 40 mg/dl (7-17) H 10/23/24 02:33
Creatinine 1.3 mg/dL (0.6-1.0) H 10/23/24 02:33
Glucose 98 mg/dl (70-99) 10/23/24 02:33
Vital Signs and I&O:
Vital Signs
Temp Pulse Resp BP Pulse Ox
98.0 F 70 18 144/94 98
10/23/24 08:21 10/23/24 08:54 10/23/24 08:21 10/23/24 08:58 10/23/24 08:21
Vital Signs
Temp Pulse Resp BP Pulse Ox
98.0 F 70 18 144/94 98
10/23/24 08:21 10/23/24 08:54 10/23/24 08:21 10/23/24 08:58 10/23/24 08:21
Intake & Output
10/21/24 10/22/24 10/23/24 10/24/24
06:59 06:59 06:59 06:59
Intake Total 480 / 480 50 / 50
Output Total 1400 / 1400 1750 / 1750
Balance -920 / -920 -1700 / -1700
Physical Exam
Physical Exam
GEN: NAD. AAO to person, place and situation
HEENT: EOMI
LUNGS: RA. No audible wheeze
CV: A sensed and v paced on tele.
ABD: ND
EXT: No edema B/L
NEURO: Gross non-focal
SKIN: No rash
--- NOTE | 2024-10-23 10:18 | CM ---
Addendum entered by Perla Becerra 10/23/24 15:09:
[facility] admissions states they can offer a bed for tomorrow if medically stable and approved by her insurance. [facility]missions can offer a bed on Monday if approved by insurance. Telephone call to [facility] to start the pre-cert.
The auth. number is [id number]. Met with Miss Mallory to update her. The discharge plan is to go to [facility] tomorrow if medically stable, approved by insurance and she is agreeable.
Original Note:
Reviewed chart. Met with Miss Mallory to review discharge plans. We reviewed SNF/Rehab. Telephone call to her sister Larua to review SNF/Rehab. She states she has been in [facility] in the past. She was agreeable to having referral sent to
[facility] and [facility]. Telephone call to [facility] Admissions to make the referral. Sent referral. Telephone call to [facility] to make the referral. Left message. Sent the referral. Will need to
pre-cert with insurance. Awaiting response to see if bed available. Medical work-up in progress. The discharge plan is to go to SNF/Rehab, if bed available and approved insurance when medically stable.
--- NOTE | 2024-10-23 11:26 | PN.CDI ---
CDI
- -
CDI:
Physician Documentation Request
Admit Date: 10/19/24 16:14
Dear Doctor /PA,
Please review the following and provide your response in the progress notes.
Clinical Indicators:
Pt admitted with complete heart block s/p dual chamber pacemaker 10/21
Cardiology notes 10/20 ' Acute heart failure, unknown type...Reports progressive lower extremity edema, chest x-ray suggestive of mild pulmonary edema (my interpretation), and proBNP is elevated above 7000 all in keeping with acute heart failure-IV
diuretics twice daily...'
Cardiology progress note 10/24, ' Acute HF unknown EF...Echo 10/22/24: EF 75%, mild basal septal hypertrophy with septum measuring up to 1.2 cm, cavity obliteration noted on some views, basal inferior wall appears akinetic, trace MR....Lasix 40 mg IV
BID placed on hold 10/23/24...'
Please provide further specificity regarding the most likely type of CHF you are evaluating, treating or monitoring.
Acute Diastolic CHF
Acute Systolic CHF
Other ( please specify)
Use of terms such as suspected, likely, concern for, or probable (associated with a specific diagnosis that is being evaluated, monitored, or treated as if it exists) are acceptable and can be coded in the inpatient setting, when documented at the
time of discharge.
Thank you,
Nicole Deshpande RN
CDI Specialist
[facility]
Please use your independent medical judgment in providing your response.
--- NOTE | 2024-10-23 16:42 | W.PN.HOSP.TC ---
Today's Communication/Plan
-
Assessment / Plan
Assessment / Plan
NAD sitting in bedside chair
Scleral Anicteric
MMM
No JVD
CTABL
Regular though bradycardic, S1/S2
Soft, NT, ND, BS+
Warm, Dry
AAOx3
Calm
#Acute CHF unspecified
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
PPM placed on 10/21/24
Stop IV diuretic
Echo pending
TAMICA, new,
Related to IV diuretics
Expect to improve
Repeat BMP in the
#HTN emergency on admisison
up-titrate antihypertensives
#Chronic transaminitis
US RUQ - unremarkable
check hepatitis panel
DVT ppx hep
FUll code
Social work updated aware to start looking for SNF placement
Anticipated Discharge: Within 24 hours
Subjective/Interval History
-
Date of Service: October 23, 2024
Seen and examined. No new complaints. No acute overnight events.
Objective Data
-
Vital Signs:
Vital Signs
Temp Pulse Resp BP Pulse Ox
97.8 F 62 18 149/72 95
10/23/24 15:59 10/23/24 14:00 10/23/24 15:59 10/23/24 12:17 10/23/24 15:59
I&O
10/22/24 10/23/24 10/24/24
06:59 06:59 06:59
Intake Total 50 / 50
Output Total 1750 / 1750
Balance -1700 / -1700
--- NOTE | 2024-10-23 20:43 | PTCARENOTE ---
Received patient at change of shift. Patient alert and oriented x3, sitting in bed. Left chest wall site clean, dry, and intact. Soft to touch, no ecchymosis or hematoma. Steri strips with Aquacel dressing. Pt verbalized being nervous about going to
SNF. Discussed with patient how this will help her get stronger to keep her safe. Discussed plan of care. Patient verbalized understanding. Call wahl within reach.
[2024-10-24 03:28] VITALS: BP 160/90
[2024-10-24 03:29] VITALS: BMI 20.4
[2024-10-24 03:37] VITALS: BP 182/75
[2024-10-24 04:13] LABS: Hematocrit 35.6 % (37.0-47.0); Hemoglobin 11.6 g/dL (12.0-16.0); Mean Corp Hgb Conc. 32.6 g/dL (33.0-37.0); Mean Corpuscular Hgb 28.8 pg (27.0-31.0); Mean Corpuscular Volume 88.3 fL (81.0-99.0); Mean Platelet Volume 10.8 fL (7.4-10.4); Platelet Count 189 10^3/uL (130-400); Red Blood Cell Count 4.03 10^6/uL (4.20-5.40); White Blood Cell Count 9.2 10^3/uL (4.8-10.8)
[2024-10-24 04:37] LABS: Blood Urea Nitrogen 45 mg/dl (7-17); Calcium 8.2 mg/dl (8.4-10.2); Carbon Dioxide 29 mmol/L (22-30); Chloride 101 mmol/L (98-107); Estimated Creatinine Clearance 34 ml/min; Glucose 99 mg/dl (70-99); Potassium 4.8 mmol/L (3.5-5.1); Sodium 133 mmol/L (135-145); eGFR > 60.00
[2024-10-24 04:49] VITALS: BP 144/80
[2024-10-24 06:50] VITALS: BP 163/79
[2024-10-24] MEDS: ZESTRIL 20 MG PO (08:50)
[2024-10-24] MEDS: COREG 6.25 MG PO (08:50)
[2024-10-24] MEDS: CRESTOR 10 MG PO (08:50)
[2024-10-24] MEDS: FARXIGA 10 MG PO (08:50)
[2024-10-24] MEDS: HEPARIN 5000 UNITS SC (08:51)
--- NOTE | 2024-10-24 09:56 | CM ---
Addendum entered by Perla Becerra 10/24/24 14:28:
Unit Sec. made wheelchair arrangements with [facility] for 5:00 p.m.. Telephone call to Romana [id number] to update her on transfer date and time. Updated Miss Mallory to review transfer date and time. The discharge plan is to go to [facility] when medically stable.
Addendum entered by Perla Becerra 10/24/24 10:30:
Met with Miss Mallory and she is now agreeable to going to [facility] after speaking with the attending physician. Updated her [id number] regarding going to [facility]. The discharge plan is to go to [facility] when medically stable.
Addendum entered by Perla Becerra 10/24/24 10:08:
The telephone number for report is ([phone]) and the fax number is ([phone]).
Original Note:
Reviewed chart. [facility] Ad[facility] confirms ability to accept today. Telephone call to Ameena yesterday to pre-cert for SNF/Rehab. Approved SNF/Rehab. from 10/19/2024 to 11/02/24.Auth. number is [id number]. Met with Miss Mallory to
review SNF/Rehab. with her. She states she would prefer to go home. TT attending physician to update him. He states he spoke with her and she is agreeable. Received telephone call from [facility]missions to confirm ability to accept. [place]
[facility] can not accept her until after 2:00 p.m. The telephone call for report is ([phone]) and fax number is ([phone]). Medical work-up in progress. The discharge plan is to go to [facility] [place] when medically stable.
--- NOTE | 2024-10-24 10:38 | PTCARENOTE ---
Assumed care of pt from night RN. Pt received awake and alert, sitting up in chair. VSS, CM shows A?V pacing 60-70's, POX 98% on RA. Pt denies any pain or discomfort at this time, for TSF to [facility] for rehab later today.
--- NOTE | 2024-10-24 10:45 | W.PN.CARDCBS ---
Addendum entered and electronically signed by Papito Jackson MD 10/24/24 15:08:
Patient seen, interviewed and examined by me.
Patient tells me she is feeling well. She would like to go home. She has no chest pain shortness of breath palpitations or dizziness.
Well-appearing, no acute distress
Regular rate and rhythm with normal S1 and S2, no S3 no S4. There is a grade 1/6 apical holosystolic murmur and no rubs. PMI is normally placed.
Lungs are clear to auscultation bilaterally without wheezes rales or rhonchi.
Abdomen soft nontender nondistended with normoactive bowel sounds
Extremities show trace pretibial edema bilaterally no clubbing or cyanosis.
Neurologic exam is grossly nonfocal.
Review of telemetry demonstrates dual-chamber pacing.
Review of blood work shows renal function has improved/normalized with holding of IV Lasix. She has been discharged on 20 mg of Lasix daily but even this low-dose should be reassessed as an outpatient. It is likely that her heart failure was
precipitated by complete heart block and now complete heart block is effectively treated with dual-chamber permanent pacing.
I once again reviewed discharge instructions with her regarding arm motion restrictions over the first 4 weeks postimplantation. All of her questions answered.
Stable for discharge to home today.
Original Note:
Today's Communication / Plan
-
Stable for transfer to rehab
Impression / Plan
-
Cart Attendant: None prior to admission, initially seen by Lobito
PCP: Kendall Kang
Impression:
Admitted with complete heart block 10/19/24
s/p Medtronic DC PPM 10/21/24
Acute HFpEF
Hypertension
Hyperlipidemia
Chronically elevated LFTs
Developmental delay
Atherosclerotic disease of abdominal aorta without evidence of AAA by u/s 10/20/24
TAMICA
Echo 10/22/24: EF 75%, mild basal septal hypertrophy with septum measuring up to 1.2 cm, cavity obliteration noted on some views, basal inferior wall appears akinetic, trace MR
Plan:
-Standing scale weight on 10/21/24 was 101 lbs then standing scale weight on 10/23/24 was 88 lbs and standing scale weight now 94 lbs on 10/24/24. Surprisingly weights are up and down despite using standing scale.
-Cre improved to 0.9 on 10/24/24. Cre peaked at 1.3 on 10/23/24.
-Lasix 40 mg IV BID placed on hold 10/23/24. Patient was not taking a diuretic prior to admission. Will d/c to home on Lasix 20 mg PO daily.
-EF 75% by echo 10/22/24 and no significant valve disease. LV hyperdynamic on echo.
-Patient with complete heart block on admission and had Medtronic DC PPM placed 10/21/24
-Outpatient dose of lisinopril increased to 20 mg daily 10/23/24
-Will increase Coreg to 12.5 mg BID on 10/24/24. Coreg is new this admission.
-New to Farxiga 10 mg daily and she has a $0 co-pay. Appreciate help of CM on checking cost.
-LFTs elevated as far back as 2021. Abdominal u/s showed normal liver appearance
-There is evidence of atherosclerotic disease of abdominal aorta without evidence of AAA by u/s 10/20/24. Check CVE. Outpatient dose of Crestor 10 mg daily has been continued.
-PT suggesting rehab stay prior to returning home to live with her sister in law and they have selected [facility].
-Stable for d/c to home from a cardiac standpoint
HPI: 74-year-old woman past medical history of hypertension, hyperlipidemia and intellectual delay who presents for evaluation of lower extremity edema and was found to be in complete heart block for which cardiology is consulted. Patient tells me
that for what sounds like months she has been experiencing worsening lower extremity edema. Has also had episodes of lightheaded and dizziness during this time as well as presyncope. Denies elan syncope/LOC. But does tell me she has 'flopped
down' on the floor several times over this time period. Admission ECG shows sinus rate around 75 bpm, complete heart block, junctional rhythm around 40 bpm. By my review of telemetry has had heart rate around 40 bpm throughout her time here in the
emergency department.
Progress Note - Cart Attendant
Subjective
Date of Service: October 24, 2024
Feels well, no lightheadedness
Objective
Labs:
10/24/24 03:35
10/24/24 03:35
Labs
Hgb 11.6 g/dL (12.0-16.0) L 10/24/24 03:35
Hct 35.6 % (37.0-47.0) L 10/24/24 03:35
Plt Count 189 10^3/uL (130-400) 10/24/24 03:35
PT 13.7 Sec (11.4-14.6) 10/21/24 05:00
INR 1.02 10/21/24 05:00
APTT 33.1 Sec (23.4-35.0) 10/21/24 05:00
Sodium 133 mmol/L (135-145) L 10/24/24 03:35
Potassium 4.8 mmol/L (3.5-5.1) 10/24/24 03:35
BUN 45 mg/dl (7-17) H 10/24/24 03:35
Creatinine 0.9 mg/dL (0.6-1.0) 10/24/24 03:35
Glucose 99 mg/dl (70-99) 10/24/24 03:35
Vital Signs and I&O:
Vital Signs
Temp Pulse Resp BP Pulse Ox
98.1 F 60 20 163/79 98
10/24/24 06:50 10/24/24 06:50 10/24/24 06:50 10/24/24 06:50 10/24/24 10:31
Vital Signs
Temp Pulse Resp BP Pulse Ox
98.1 F 60 20 163/79 98
10/24/24 06:50 10/24/24 06:50 10/24/24 06:50 10/24/24 06:50 10/24/24 10:31
Intake & Output
10/22/24 10/23/24 10/24/24 10/25/24
06:59 06:59 06:59 06:59
Intake Total 50 / 50 120 / 120
Output Total 1750 / 1750
Balance -1700 / -1700 120 / 120
Physical Exam
Physical Exam
GEN: NAD. AAO to person, place and situation
HEENT: EOMI
LUNGS: RA. No audible wheeze
CV: A sensed and v paced on tele.
ABD: ND
EXT: No edema B/L
NEURO: Gross non-focal
SKIN: No rash
[2024-10-24 11:13] VITALS: BP 166/96
--- NOTE | 2024-10-24 13:34 | W.PN.HOSP.TC ---
Today's Communication/Plan
-
pending placement
Assessment / Plan
Assessment / Plan
NAD sitting in bedside chair
Scleral Anicteric
MMM
No JVD
CTABL
Regular though bradycardic, S1/S2
Soft, NT, ND, BS+
Warm, Dry
AAOx3
Calm
#Acute on chornic HFpEF
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
compliance monitor
PPM placed on 10/21/24
Stop IV diuretic
Echo pending
TAMICA, new,
Related to IV diuretics
Expect to improve
Repeat BMP in the
Hyponatermia
Increase po intake
Umbilical hernia
-reducible
-oupt surgery follow up
#HTN emergency on admisison
up-titrate antihypertensives
#Chronic transaminitis
US RUQ - unremarkable
check hepatitis panel
DVT ppx hep
FUll code
Social work updated aware to start looking for SNF placement
Anticipated Discharge: Within 24 hours
Subjective/Interval History
-
Date of Service: October 24, 2024
seen and examined. no new complanits. no acute overnight events
Objective Data
-
Labs:
Laboratory Results
10/24/24
03:35
WBC 9.2
Hgb 11.6 L
Hct 35.6 L
Plt Count 189
Sodium 133 L
Potassium 4.8
Chloride 101
Carbon Dioxide 29
BUN 45 H
Creatinine 0.9
Glucose 99
Calcium 8.2 L
Vital Signs:
Vital Signs
Temp Pulse Resp BP Pulse Ox
97.9 F 60 20 166/96 98
10/24/24 11:12 10/24/24 11:13 10/24/24 11:12 10/24/24 11:13 10/24/24 11:12
I&O
10/23/24 10/24/24 10/25/24
06:59 06:59 06:59
Intake Total 120 / 120
Balance 120 / 120
--- NOTE | 2024-10-24 13:41 | W.DCSUMMARY ---
Discharge Summary
Discharge Data
Date of Admission: 10/19/24
Date of Discharge: 10/24/24
-
Pending Results: No
Hospital Course
74-year-old female past medical history of hypertension, hyperlipidemia
Presented with multiple episodes of syncope associated with increasing lower extremity edema, shortness of breath exertion. Found to be in heart failure exacerbation and was treated with IV diuretics. Noted bump in creatinine which improved once
IV diuretics were discontinued. Additionally noted to have umbilical hernia for which she will need outpatient general surgery follow-up. Terms of the syncope is likely secondary to complete heart block and is now s/p PPM. Was evaluated by
physical therapy and recommended SNF placement
Discharge Plan
-
Patient Disposition: Alf/SNF
Discharge Diagnosis/Procedures: Pacemaker implant
Diet: 2 Gram Sodium and Restrict fluids to 64 oz
Driving Restrictions: No driving for 1 week
Bathing Restrictions: OK to Shower
Specialty Instructions: Weigh Daily- Call MD for wt gain/loss 3 lbs overnight/5 lbs in 1 week
Activity Restrictions/Additional Instructions:
Presented with multiple episodes of syncope associated with increasing lower extremity edema, shortness of breath exertion. Found to be in heart failure exacerbation and was treated with IV diuretics. Noted bump in creatinine which improved once
IV diuretics were discontinued. Additionally noted to have umbilical hernia for which she will need outpatient general surgery follow-up. Terms of the syncope is likely secondary to complete heart block and is now s/p PPM. Was evaluated by
physical therapy and recommended SNF placement
Instructions: *CBC Heart Failure Instructions
Stand Alone Forms: DC Inst - Implanted Device
Referrals:
[facility]- [facility] [Provider Group] - 10/28/24 11:00 am (Post device incision check appointment)
[facility] [Outside]
Kendall Kang MD [Family Provider] -
Prescriptions:
New
carvedilol 12.5 mg Tablet
12.5 mg PO BID Qty: 60 11RF
lisinopril 20 mg Tablet
20 mg PO DAILY Qty: 30 11RF
dapagliflozin propanediol 10 mg Tablet
10 mg PO DAILY Qty: 30 0RF
Continued
rosuvastatin [Crestor] 10 mg Tablet
10 mg PO DAILY
Discontinued
lisinopril 10 MG tablet
10 mg PO DAILY
acetaminophen [Tylenol] 325 mg Tablet
650 mg PO Q4HPRN PRN (Reason: mild pain)
Discharge Orders:
Discharge Patient (As Directed); Ordered 10/24/24
Ordered By: Luis Hidalgo
Care Plan Goals
Care Plan Goals:
Problem: Readiness for enhanced knowledge related to diagnosis and treatment plan
Goal: Understand your diagnosis and treatment plan needs, including medications if applicable.
Instructions: Know your diagnosis, underlying causes and treatment plan options, including medications if applicable. Consult with your health care team to learn about your diagnosis and treatment plan, including medications if applicable.
Discharge Date and Time
Print Language: KITTITIAN
[2024-10-24 14:43] VITALS: BP 178/79
--- NOTE | 2024-10-24 17:01 | PN.CDI ---
CDI
- -
CDI:
Physician Documentation Request
Admit Date: 10/19/24 16:14
Dear Doctor Rocky,
Please review the following and provide your response in the progress notes.
Clinical Indicators:
Pt admitted with complete heart block s/p dual chamber pacemaker 10/21
There is potentially conflicting documentation in the record regarding the acuity of CHF.
Cardiology notes 10/20 ' Acute heart failure, unknown type...Reports progressive lower extremity edema, chest x-ray suggestive of mild pulmonary edema (my interpretation), and proBNP is elevated above 7000 all in keeping with acute heart failure-IV
diuretics twice daily...'
Cardiology progress note 10/24, ' Acute HF unknown EF...Echo 10/22/24: EF 75%..'
Cardiology note 10/24,' It is likely that her heart failure was precipitated by complete heart block and now complete heart block is effectively treated with dual-chamber permanent pacing.'
Progress note 10/24, ' Acute on chornic HFpEF...'
Due to conflicting documentation ,Please provide further specificity regarding the most likely acuity of CHF you are evaluating, treating or monitoring:
Acute Diastolic CHF
Acute on Chronic Diastolic CHF ( no change in documentation)
Other ( please specify)
Use of terms such as suspected, likely, concern for, or probable (associated with a specific diagnosis that is being evaluated, monitored, or treated as if it exists) are acceptable and can be coded in the inpatient setting, when documented at the
time of discharge.
Thank you,
Nicole Deshpande RN
CDI Specialist
[place] [facility]
Please use your independent medical judgment in providing your response.
--- NOTE | 2024-10-24 18:34 | PTCARENOTE ---
Report given to RICKI Samaniego at [facility], pt trasferred via [facility] ambulance.
== END 2024-10-24 18:35 | DRG 242 ==
LOC: IVU 16:14
PROVIDERS: Internal Medicine; Internal Medicine Cardiovascular Disease; Physician Assistant; Registered Nurse; ADMITTING PHYSICIAN Hospitalist; ATTENDING PHYSICIAN Hospitalist; CONSULT PHYSICIAN Internal Medicine Cardiovascular Disease; EMERGENCY PHYSICIAN Emergency Medicine; FAMILY PHYSICIAN Family Medicine
PROC: 0JH606Z Insertion of Pacemaker, Dual Chamber into Chest Subcutaneous Tissue and Fascia, Open Approach (ICD-10-PCS; 2024-10-21)
PROC: 02H63JZ Insertion of Pacemaker Lead into Right Atrium, Percutaneous Approach (ICD-10-PCS; 2024-10-21)
PROC: 02HL3JZ Insertion of Pacemaker Lead into Left Ventricle, Percutaneous Approach (ICD-10-PCS; 2024-10-21)
DX: I44.2 Atrioventricular block, complete (principal); I50.33 Acute on chronic diastolic (congestive) heart failure; I16.1 Hypertensive emergency; N17.9 Acute kidney failure, unspecified; E87.1 Hypo-osmolality and hyponatremia; I11.0 Hypertensive heart disease with heart failure; E78.00 Pure hypercholesterolemia, unspecified; I25.10 Atherosclerotic heart disease of native coronary artery without angina pectoris; F17.200 Nicotine dependence, unspecified, uncomplicated; K42.9 Umbilical hernia without obstruction or gangrene; R74.01 Elevation of levels of liver transaminase levels; Z82.49 Family history of ischemic heart disease and other diseases of the circulatory system
CPT/HCPCS: 33208; 71045; 76700; 80048; 80053; 80061; 83735; 83880; 84439; 84443; 84484; 85025; 85027; 85610; 85730; 86704; 86706; 86803; 87340; 93005; 93306; 93970; 96374; 97163; 97166; 99285; C1769; C1785; C1887; C1892; C1898; Q9967

== ENCOUNTER → 2024-10-28 11:12 | Outpatient (REF) | payer OTHER, SELFPAY ==
[2024-10-28 12:23] LABS: % Basophils 0.8 % (0-2); % Eosinophils 6.3 % (0-6); % Immature Granulocytes 0.4 % (0-0.5); % Lymphocytes 20.6 % (20.5-51.1); % Monocytes 9.6 % (1.7-9.3); % Neutrophils 62.3 % (42.2-75.2); Absolute Basophils 0.1 10^3/uL (0-0.2); Absolute Eosinophils 0.5 10^3/uL (0-0.7); Absolute Lymphocytes 1.6 10^3/uL (1.2-3.4); Absolute Monocytes 0.7 10^3/uL (0.1-0.6); Absolute Neutrophils 4.8 10^3/uL (1.4-6.5); Hematocrit 35.6 % (37.0-47.0); Hemoglobin 11.2 g/dL (12.0-16.0); Mean Corp Hgb Conc. 31.5 g/dL (33.0-37.0); Mean Corpuscular Hgb 28.4 pg (27.0-31.0); Mean Corpuscular Volume 90.4 fL (81.0-99.0); Mean Platelet Volume 10.4 fL (7.4-10.4); Nucleated Red Blood Cells % 0 %; Platelet Count 244 10^3/uL (130-400); Red Blood Cell Count 3.94 10^6/uL (4.20-5.40); Red Cell Dist. Width 13.7 % (11.5-14.5); White Blood Cell Count 7.7 10^3/uL (4.8-10.8)
[2024-10-28 12:46] LABS: Blood Urea Nitrogen 31 mg/dl (7-17); Calcium 8.5 mg/dl (8.4-10.2); Carbon Dioxide 28 mmol/L (22-30); Chloride 103 mmol/L (98-107); Glucose 84 mg/dl (70-99); Potassium 5.5 mmol/L (3.5-5.1); Sodium 135 mmol/L (135-145); eGFR > 60.00
== END ==
LOC: OLABP 11:12
PROVIDERS: ATTENDING PHYSICIAN Family Medicine
DX: I50.9 Heart failure, unspecified (principal); I11.0 Hypertensive heart disease with heart failure; N17.9 Acute kidney failure, unspecified; E78.5 Hyperlipidemia, unspecified; I16.1 Hypertensive emergency; I10 Essential (primary) hypertension; I44.2 Atrioventricular block, complete
CPT/HCPCS: 36415; 80048; 85025

== ENCOUNTER → 2024-10-29 10:18 | Outpatient (REF) | payer OTHER, SELFPAY ==
[2024-10-29 11:49] LABS: Blood Urea Nitrogen 28 mg/dl (7-17); Calcium 8.8 mg/dl (8.4-10.2); Carbon Dioxide 28 mmol/L (22-30); Chloride 101 mmol/L (98-107); Glucose 89 mg/dl (70-99); Potassium 5.4 mmol/L (3.5-5.1); Sodium 136 mmol/L (135-145); eGFR > 60.00
== END ==
LOC: OLABP 10:18
PROVIDERS: ATTENDING PHYSICIAN Family Medicine
DX: I50.9 Heart failure, unspecified (principal); I11.0 Hypertensive heart disease with heart failure; N17.9 Acute kidney failure, unspecified; E78.5 Hyperlipidemia, unspecified; I16.1 Hypertensive emergency; I44.2 Atrioventricular block, complete
CPT/HCPCS: 36415; 80048

== ENCOUNTER → 2024-10-30 11:11 | Outpatient (REF) | payer OTHER, SELFPAY ==
[2024-10-30 12:42] LABS: Blood Urea Nitrogen 33 mg/dl (7-17); Calcium 8.5 mg/dl (8.4-10.2); Carbon Dioxide 26 mmol/L (22-30); Chloride 105 mmol/L (98-107); Glucose 84 mg/dl (70-99); Potassium 5.4 mmol/L (3.5-5.1); Sodium 135 mmol/L (135-145); eGFR > 60.00
== END ==
LOC: OLABP 11:11
PROVIDERS: ATTENDING PHYSICIAN Family Medicine
DX: I44.2 Atrioventricular block, complete (principal); I50.9 Heart failure, unspecified; I10 Essential (primary) hypertension; N17.9 Acute kidney failure, unspecified; E78.5 Hyperlipidemia, unspecified; I61.1 Nontraumatic intracerebral hemorrhage in hemisphere, cortical
CPT/HCPCS: 36415; 80048

== ENCOUNTER → 2024-11-01 10:52 | Outpatient (REF) | payer OTHER, SELFPAY ==
[2024-11-01 11:41] LABS: Blood Urea Nitrogen 34 mg/dl (7-17); Calcium 8.6 mg/dl (8.4-10.2); Carbon Dioxide 24 mmol/L (22-30); Chloride 104 mmol/L (98-107); Glucose 82 mg/dl (70-99); Potassium 5.1 mmol/L (3.5-5.1); Sodium 136 mmol/L (135-145); eGFR > 60.00
== END ==
LOC: OLABP 10:52
PROVIDERS: ATTENDING PHYSICIAN Family Medicine
DX: I50.9 Heart failure, unspecified (principal); I11.0 Hypertensive heart disease with heart failure; N17.9 Acute kidney failure, unspecified; E78.5 Hyperlipidemia, unspecified; I16.1 Hypertensive emergency; I10 Essential (primary) hypertension; I44.2 Atrioventricular block, complete
CPT/HCPCS: 36415; 80048